=== PATIENT | female | born 1990 | race African-American/Black ===

== ENCOUNTER 2017-11-08 03:28 | Emergency (ER) | payer MEDICAID ==
[~2017-11-08] VITALS: Ht 167.6 cm; Wt 130.8 kg
[2017-11-08] MEDS ORDERED: LIDOCAINE HCL/PF 1% 10 MG/ML 5ML VIAL IJ ONE (06:45)
[2017-11-08] MEDS ORDERED: BACITRACIN ZINC OINT UDPKT TOP ONE (06:45)
[2017-11-08] MEDS ORDERED: ACETAMINOPHEN 325MG TABLET PO ONE (06:45)
[2017-11-08] MEDS ORDERED: IBUPROFEN 800MG TABLET PO ONE (09:15)
[2017-11-08 09:33] VITALS: BP 139/99
== END 2017-11-08 09:46 | disposition home or self-care (01) ==
LOC: ER 03:28
DX: S61.306A Unspecified open wound of right little finger with damage to nail, initial encounter (principal); X58.XXXA Exposure to other specified factors, initial encounter; Y93.89 Activity, other specified; Y92.89 Other specified places as the place of occurrence of the external cause; Y99.8 Other external cause status
CPT/HCPCS: 11730; 99284; J3490; Z7610

== ENCOUNTER 2018-07-01 17:26 | Emergency (ER) | payer MEDICAID ==
[~2018-07-01] VITALS: Ht 167.6 cm; Wt 104.0 kg
[2018-07-01] MEDS ORDERED: KETOROLAC 60MG/2ML VIAL IM ONE (19:00)
[2018-07-01 19:14] VITALS: BP 134/81
== END 2018-07-01 19:15 | disposition home or self-care (01) ==
LOC: ER 17:26
DX: J06.9 Acute upper respiratory infection, unspecified (principal)
CPT/HCPCS: 81025; 96372; 99283; J1885

== ENCOUNTER 2019-03-23 08:08 | Emergency (ER) | payer MEDICAID ==
[~2019-03-23] VITALS: Ht 167.6 cm; Wt 106.0 kg
[2019-03-23] MEDS ORDERED: ACETAMINOPHEN 325MG TABLET PO PRN (09:00)
[2019-03-23 10:20] LABS: CHLORIDE 108 mEq/L (98-107)
[2019-03-23 10:24] LABS: BASOPHILS % 0.6 % (0.0-2.0); EOSINOPHILS % 1.2 % (0.0-5.0); HEMATOCRIT. 33.4 % (36.0-48.0); HEMOGLOBIN. 11.8 g/dL (12.0-16.0); LYMPHOCYTES % 19.1 % (20.0-50.0); MEAN CORPUSCULAR HEMOGLOBIN 28.2 pg (28.0-32.0); MEAN CORPUSCULAR VOLUME 79.7 fL (81.0-99.0); MEAN PLATELET VOLUME 9.2 fl (7.4-10.4); NEUTROPHILS % 74.1 % (40.0-76.0); PLATELET 231 x1000/uL (130-400); RED BLOOD CELL COUNT 4.19 mill/uL (4.2-5.4); RED CELL DISTRIBUTION WIDTH 13.9 % (11.6-14.6)
[2019-03-23 10:39] LABS: CLARITY URINE CLOUDY (CLEAR); COLOR URINE YELLOW (YELLOW); KETONES URINE TRACE (NEGATIVE); LEUKOCYTE ESTERASE URINE TRACE (NEGATIVE); NITRITE URINE NEGATIVE (NEGATIVE); OCCULT BLOOD URINE 1+ (NEGATIVE); PH URINE 8.5 (4.5-8.0); PROTEIN URINE NEGATIVE (NEGATIVE); SPECIFIC GRAVITY URINE 1.014 (1.005-1.030); UROBILINOGEN URINE 0.2 E.U./dL (0.2-1.0)
[2019-03-23 10:42] LABS: B-HCG QUANTITATIVE 11963 mIU/mL (<3)
[2019-03-23 12:00] VITALS: BP 112/60
== END 2019-03-23 12:20 | disposition home or self-care (01) ==
LOC: ER 08:08
DX: O20.0 Threatened abortion (principal); O23.43 Unspecified infection of urinary tract in pregnancy, third trimester; Z3A.20 20 weeks gestation of pregnancy
CPT/HCPCS: 36415; 76805; 80053; 81003; 81025; 84702; 85025; 86850; 86900; 99284

== ENCOUNTER 2019-06-25 11:20 | Observation (INO) | payer MEDICAID ==
[2019-06-25 14:36] LABS: CLARITY URINE TURBID (CLEAR); COLOR URINE YELLOW (YELLOW); KETONES URINE NEGATIVE (NEGATIVE); LEUKOCYTE ESTERASE URINE 2+ (NEGATIVE); NITRITE URINE NEGATIVE (NEGATIVE); OCCULT BLOOD URINE NEGATIVE (NEGATIVE); PH URINE 7.5 (4.5-8.0); PROTEIN URINE NEGATIVE (NEGATIVE); SPECIFIC GRAVITY URINE 1.013 (1.005-1.030)
== END 2019-06-25 16:45 | disposition home or self-care (01) ==
LOC: 8 EST LDRP 11:20
PROVIDERS: ADMIT Obstetrics & Gynecology; ATTEND Obstetrics & Gynecology
DX: O26.853 Spotting complicating pregnancy, third trimester (principal); O26.893 Other specified pregnancy related conditions, third trimester; R10.9 Unspecified abdominal pain; Z3A.34 34 weeks gestation of pregnancy
CPT/HCPCS: 76805; 76818; 81003; 99281; G0378

== ENCOUNTER 2019-08-06 21:15 | Inpatient (IN) | payer MEDICAID ==
[~2019-08-06] VITALS: Ht 167.6 cm; Wt 120.2 kg
[2019-08-06] MEDS ORDERED: DEXT 5%/LR + PITOCIN 20UNITS/L 1,000 ML IV SCH (23:53)
[2019-08-07] MEDS ORDERED: METHYLERGONOVINE MALEATE 0.2 MG/ML IM PRN
[2019-08-07] MEDS ORDERED: LIDOCAINE HCL 1% 20ML VIAL (Pyxis) INJ INFIL SCH
[2019-08-07] MEDS ORDERED: BUTORPHANOL TARTRATE 2 MG/ML VIAL IV PRN
[2019-08-07] MEDS ORDERED: NALOXONE HCL 0.4 MG/ML 1ML VIAL IM PRN
[2019-08-07] MEDS: LACTATED RINGERS 1,000 ML IV SCH ×2 (00:33→04:51)
[2019-08-07] MEDS ORDERED: DIPHENHYDRAMINE 50MG/ML VIAL IV SCH (01:00)
[2019-08-07 01:35] LABS: CLARITY URINE CLEAR (CLEAR); COLOR URINE YELLOW (YELLOW); KETONES URINE NEGATIVE (NEGATIVE); LEUKOCYTE ESTERASE URINE TRACE (NEGATIVE); NITRITE URINE NEGATIVE (NEGATIVE); OCCULT BLOOD URINE NEGATIVE (NEGATIVE); PH URINE 6.5 (4.5-8.0); PROTEIN URINE NEGATIVE (NEGATIVE); SPECIFIC GRAVITY URINE 1.019 (1.005-1.030)
[2019-08-07 02:26] LABS: BASOPHILS % 0.7 % (0.0-2.0); EOSINOPHILS % 1.8 % (0.0-5.0); HEMATOCRIT. 32.2 % (36.0-48.0); HEMOGLOBIN. 11.3 g/dL (12.0-16.0); LYMPHOCYTES % 22.6 % (20.0-50.0); MEAN CORPUSCULAR HEMOGLOBIN 28.7 pg (28.0-32.0); MEAN CORPUSCULAR VOLUME 81.5 fL (81.0-99.0); MEAN PLATELET VOLUME 9.8 fl (7.4-10.4); NEUTROPHILS % 67.9 % (40.0-76.0); PLATELET 225 x1000/uL (130-400); RED BLOOD CELL COUNT 3.95 mill/uL (4.2-5.4); RED CELL DISTRIBUTION WIDTH 15.6 % (11.6-14.6)
[2019-08-07 02:27] LABS: INR 0.9; PARTIAL THROMBOPLASTIN TIME 26.4 sec (23.4-31.0); PROTHROMBIN TIME 9.6 sec (9.6-11.0)
[2019-08-07 03:23] LABS: *AMPHETAMINES SCREEN URINE NEGATIVE (NEGATIVE); *BARBITURATES SCREEN URINE NEGATIVE (NEGATIVE); *BENZODIAZEPINES SCREEN URINE NEGATIVE (NEGATIVE); *COCAINE SCREEN URINE NEGATIVE (NEGATIVE); CANNABINOID URINE SCREEN NEGATIVE (NEGATIVE); METHADONE URINE SCREEN NEGATIVE (NEGATIVE); OPIATES URINE SCREEN NEGATIVE (NEGATIVE); PHENCYCLIDINE URINE SCREEN NEGATIVE (NEGATIVE)
[2019-08-07 04:17] LABS: HEPATITIS B SURFACE ANTIGEN NEGATIVE
[2019-08-07] MEDS ORDERED: CITRIC ACID/SODIUM CITRATE SOLN 30ML UDC PO ONE (10:00)
[2019-08-07] MEDS ORDERED: FENTANYL CITRATE/PF 50MCG/ML 2ML VIAL ONE ×2 (10:47→11:16)
[2019-08-07] MEDS ORDERED: CEFAZOLIN SODIUM 1000MG/VIAL ONE (10:47)
[2019-08-07] MEDS ORDERED: GLYCOPYRROLATE 0.2 MG/ML 2ML VIAL ONE (10:48)
[2019-08-07] MEDS ORDERED: NEOSTIGMINE METHYLSULFATE 1MG/ML 10 ML VIAL ONE (10:48)
[2019-08-07] MEDS ORDERED: PHENYLEPHRINE HCL 10 MG/ML 1ML (IV VIAL) IV ONE (10:48)
[2019-08-07] MEDS ORDERED: EPHEDRINE SULFATE 50MG/ML VIAL ONE (10:48)
[2019-08-07] MEDS ORDERED: SUCCINYLCHOLINE CHLORIDE 200MG/10ML IV ONE (10:48)
[2019-08-07] MEDS ORDERED: ONDANSETRON HCL 4MG/2ML INJ ONE (10:48)
[2019-08-07] MEDS ORDERED: KETOROLAC 60MG/2ML VIAL IM ONE (10:48)
[2019-08-07] MEDS ORDERED: PROPOFOL 200MG/20ML VIAL IV ONE ×2 (10:48→11:19)
[2019-08-07] MEDS ORDERED: METOCLOPRAMIDE HCL 10MG/2ML VIAL ONE (10:48)
[2019-08-07] MEDS ORDERED: ROCURONIUM BROMIDE 10MG/ML VIAL 5ML IV ONE (10:48)
[2019-08-07] MEDS ORDERED: NALOXONE HCL 0.4 MG/ML 1ML VIAL ONE (11:19)
[2019-08-07] MEDS ORDERED: ONDANSETRON HCL 4MG/2ML INJ IV PRN (12:00)
[2019-08-07] MEDS ORDERED: HYDROMORPHONE HCL/PF 2MG/ML CPJ IV PRN (12:00)
[2019-08-07] MEDS ORDERED: MORPHINE SULFATE 2 MG/ML CPJ (NOT FOR IM USE) IV PRN (12:00)
[2019-08-07] MEDS ORDERED: MEPERIDINE HCL/PF 25MG/ML CPJ IV PRN ×2 (12:00)
[2019-08-07] MEDS ORDERED: SODIUM CHLORIDE 0.9% 1,000 ML IV ONE (12:15)
[2019-08-07 14:00] VITALS: BP 131/66
[2019-08-07 14:30] VITALS: BP 106/58
[2019-08-07 16:00] VITALS: BP 110/68
[2019-08-07 19:30] VITALS: BP 110/71
[2019-08-07] MEDS: KETOROLAC 30MG/ML VIAL IV SCH (19:51)
[2019-08-07] MEDS: HYDROCODONE/ACETAMINOPHEN 10/325MG TABLET PO SCH (22:58)
[2019-08-08] MEDS: KETOROLAC 30MG/ML VIAL IV SCH ×3 (02:09→13:10)
[2019-08-08 04:00] VITALS: BP 124/57
[2019-08-08] MEDS: HYDROCODONE/ACETAMINOPHEN 10/325MG TABLET PO SCH ×2 (05:00→11:13)
[2019-08-08 06:14] LABS: HEMATOCRIT 27.3 % (36.0-48.0); HEMOGLOBIN 9.4 g/dL (12.0-16.0); MEAN CORPUSCULAR HEMOGLOBIN 28.3 pg (28.0-32.0); MEAN CORPUSCULAR VOLUME 81.8 fL (81.0-99.0); PLATELET 200 x1000/uL (130-400); RED BLOOD CELL COUNT 3.33 mill/uL (4.2-5.4); RED CELL DISTRIBUTION WIDTH 14.9 % (11.6-14.6)
[2019-08-08 08:00] VITALS: BP 96/66
[2019-08-08] MEDS: IBUPROFEN 800MG TABLET PO PRN ×2 (14:00→21:31)
[2019-08-08 14:21] VITALS: BP 112/61
[2019-08-08] MEDS: HYDROCODONE/ACETAMINOPHEN 10/325MG TABLET PO PRN (17:36)
[2019-08-08 19:45] VITALS: BP 115/60
[2019-08-09] VITALS: BP 114/61
[2019-08-09 04:00] VITALS: BP 115/68
[2019-08-09] MEDS: HYDROCODONE/ACETAMINOPHEN 10/325MG TABLET PO PRN ×3 (05:46→18:25)
[2019-08-09 07:50] VITALS: BP 103/50
[2019-08-09] MEDS: IBUPROFEN 800MG TABLET PO PRN ×3 (09:06→23:24)
[2019-08-09 16:14] VITALS: BP 96/75
[2019-08-09 19:49] VITALS: BP 116/71
[2019-08-10] MEDS: HYDROCODONE/ACETAMINOPHEN 10/325MG TABLET PO PRN (03:57)
[2019-08-10 05:48] VITALS: BP 114/56
== END 2019-08-10 12:10 | disposition home or self-care (01) | DRG 540 ==
LOC: INTOOBSV 21:15 → OBSVTOIN 21:15 → UNDOADMOB 21:15 → 8 EST LDRP 21:15 → 8EST 08-07 13:55 → 8 EST LDRP 08-07 13:55 → UNDODISIN 08-10 12:10
PROVIDERS: ADMIT Obstetrics & Gynecology; ATTEND Obstetrics & Gynecology
PROC: 10D00Z1 Extraction of Products of Conception, Low, Open Approach (ICD-10-PCS; principal; 2019-08-07)
DX: O48.0 Post-term pregnancy (principal); Z37.0 Single live birth; Z3A.40 40 weeks gestation of pregnancy; Z91.19 Patient's noncompliance with other medical treatment and regimen
CPT/HCPCS: 36415; 76805; 80305; 81003; 85025; 85027; 86592; 86703; 86762; 86850; 86900; 87340; 88307; 99281; J0330; J0690; J1170; J1200; J1885; J2270; J2310; J2370; J2405; J2590; J2704; J2710; J2765; J3010; J3490; J7120

== ENCOUNTER 2019-10-18 13:10 | Emergency (ER) | payer MEDICAID ==
[~2019-10-18] VITALS: Ht 172.7 cm; Wt 95.0 kg
[2019-10-18] MEDS ORDERED: ACETAMINOPHEN 325MG TABLET PO STA (13:50)
[2019-10-18 14:17] LABS: BASOPHILS % 0.8 % (0.0-2.0); EOSINOPHILS % 2.6 % (0.0-5.0); HEMATOCRIT. 37.1 % (36.0-48.0); HEMOGLOBIN. 12.7 g/dL (12.0-16.0); LYMPHOCYTES % 33.4 % (20.0-50.0); MEAN CORPUSCULAR HEMOGLOBIN 27.1 pg (28.0-32.0); MEAN CORPUSCULAR VOLUME 79.2 fL (81.0-99.0); MEAN PLATELET VOLUME 9.4 fl (7.4-10.4); MONOCYTES % 6.2 % (2.0-8.0); PLATELET 272 x1000/uL (130-400); RED BLOOD CELL COUNT 4.69 mill/uL (4.2-5.4); RED CELL DISTRIBUTION WIDTH 16.2 % (11.6-14.6)
[2019-10-18 14:25] LABS: CHLORIDE 108 mEq/L (98-107)
[2019-10-18 14:35] LABS: HCG SCREEN NEGATIVE
[2019-10-18] MEDS ORDERED: DOXYCYCLINE HYCLATE 100MG CAPSULE PO ONE (15:45)
[2019-10-18] MEDS ORDERED: KETOROLAC 15MG/ML VIAL IV ONE (16:00)
[2019-10-18 16:17] VITALS: BP 159/95
== END 2019-10-18 17:19 | disposition home or self-care (01) ==
LOC: ER 13:10
DX: J18.9 Pneumonia, unspecified organism (principal)
CPT/HCPCS: 36415; 71045; 80053; 83880; 84484; 84703; 85025; 85379; 93005; 96374; 99285; J1885

== ENCOUNTER 2020-02-06 09:31 | Emergency (ER) | payer MEDICAID ==
[~2020-02-06] VITALS: Ht 160 cm; Wt 135.6 kg
[2020-02-06 09:51] VITALS: BP 153/89
[2020-02-06] MEDS ORDERED: CETIRIZINE 10MG TABLET PO STA (10:44)
[2020-02-06] MEDS ORDERED: ACETAMINOPHEN 325MG TABLET PO ONE (10:45)
== END 2020-02-06 11:06 | disposition home or self-care (01) ==
LOC: ER 09:52
DX: L30.9 Dermatitis, unspecified (principal)
CPT/HCPCS: 99283

== ENCOUNTER 2020-02-10 17:33 | Emergency (ER) | payer MEDICAID ==
[~2020-02-10] VITALS: Ht 167.6 cm; Wt 100.0 kg
[2020-02-10 17:44] VITALS: BP 126/88
[2020-02-10] MEDS ORDERED: ACETAMINOPHEN 325MG TABLET PO ONE (21:15)
[2020-02-10] MEDS ORDERED: DIPHENHYDRAMINE 25MG CAPSULE PO ONE (21:15)
[2020-02-10] MEDS ORDERED: CEFTRIAXONE SODIUM 1 G/VIAL IM ONE (21:15)
[2020-02-10] MEDS ORDERED: PREDNISONE 20MG TABLET PO ONE (21:15)
== END 2020-02-10 22:11 | disposition home or self-care (01) ==
LOC: ER 17:33
DX: L03.211 Cellulitis of face (principal)
CPT/HCPCS: 96372; 99284; J0696; J7512; Q0163